=== PATIENT | male | born 1980 | race Hispanic/Latino ===

== ENCOUNTER 2018-11-16 02:44 | Emergency (ER) | payer SELFPAY ==
[2018-11-16] MEDS ORDERED: Sodium Chloride 0.9% 1,000 ML IV STA (03:29)
--- NOTE | 2018-11-16 04:18 | ED PDOC ---
HPI: Abdomen Time Seen by Provider: 11/16/18 03:28 Chief Complaint (Nursing): Abdominal Pain Chief Complaint (Provider): Abdominal Pain History Per: Patient History/Exam Limitations: no limitations Onset/Duration Of Symptoms: Days (x 3) Current Symptoms Are (Timing): Still Present Quality Of Discomfort: "Pain" Associated Symptoms: Nausea, Back Pain Additional Complaint(s): 37 year old male with a history of a right inguinal hernia presents to the ED with bilateral lower abdominal pain that radiates to his back and is associated with nausea for the last few days. Patient reports he has been putting off the hernia repair, but it has been bothering him more than usual lately. He is able to reduce it and there has been no change in color. He googled his symptoms and is suspicious that he could have diverticulitis. Patient began taking Flagyl the last few days after receiving it from a friend. The pain worsens when he eats, therefore patient has also experienced decreased PO intake. He also complains of a few episodes of non bloody diarrhea. Denies fever, blood in stool, vomiting, history of renal colic, and urinary symptoms. PMD: [facility] Past Medical History Reviewed: Historical Data, Nursing Documentation, Vital Signs Vital Signs: Last Vital Signs Temp 97.4 F L 11/16/18 02:54 Pulse 58 L 11/16/18 02:54 Resp 16 11/16/18 02:54 BP 108/67 11/16/18 02:54 Pulse Ox 100 11/16/18 02:54 - Medical History PMH: No Chronic Diseases - Surgical History Surgical History: No Surg Hx - Family History Family History: States: Unknown Family Hx - Home Medications Home Medications: Ambulatory Orders Medication Instructions Recorded Acetaminophen [Acetaminophen 8 650 mg PO Q8 PRN #21 tablet.er 11/16/18 Hour] RX: Ibuprofen [Motrin Tab] 800 mg PO Q8 PRN #21 tab 11/16/18 - Allergies Allergies/Adverse Reactions: Allergies Allergy/AdvReac Type Severity Reaction Status Date / Time Penicillins Allergy RASH Verified 11/16/18 02:58 Review of Systems ROS Statement: Except As Marked, All Systems Reviewed And Found Negative Gastrointestinal: Positive for: Abdominal Pain Musculoskeletal: Positive for: Back Pain Physical Exam - Reviewed Nursing Documentation Reviewed: Yes Vital Signs Reviewed: Yes - Physical Exam Comments: GENERAL APPEARANCE: Patient is awake, alert, oriented x 3; no distress. SKIN: Warm, dry; (-) cyanosis. ENMT: Mucous membranes moist. Airway patent, (-) stridor. NECK: Supple, FROM CHEST AND RESPIRATORY: (-) rales, (-) rhonchi, (-) wheezes; breath sounds equal bilaterally. Respirations even and nonlabored. HEART AND CARDIOVASCULAR: (-) irregularity ABDOMEN AND GI: Soft (-) distention. Bowel sounds active x4; (+) tenderness in bilateral lower quadrants (-) guarding, (-) rebound, (-) palpable masses, (-) CVA tenderness. Reducible right inguinal hernia without discoloration or ja thema; minimal tenderness. EXTREMITIES: (-) deformity, (-) edema, (+) distal pulses. NEURO AND PSYCH: Mental status as above; (-) focal findings. Gait: steady. Speech: clear. (-) facial asymmetry - Laboratory Results Result Diagrams: 11/16/18 04:16 11/16/18 04:16 Urine dip results: Positive for: Ketones (15), Bilirubin (small). Negative for: Leukocyte Esterase, Blood, Nitrate, Glucose, Protein - ECG O2 Sat by Pulse Oximetry: 100 (RA) Pulse Ox Interpretation: Normal Medical Decision Making Medical Decision Makin Impression: acute abdominal pain Initial Plan: --CMP --CBC --lactic acid --Lipase --Urine dip --NS IV --Pepcid 20 mg IV --Toradol 30 mg IV --Zofran Inj 4 mg IV 0415 Udip reviewed and grossly unremarkable. 0440 CBC and CMP grossly unremarkable. Lipase WNL. No elevation of lactic acid. On re-evaluation, patient with persistent discomfort. CT abd/pel with IV contrast ordered. [address] 05:40 CT COMMENTS: Fat-containing right inguinal hernia without incarceration. Diffuse thickening of the right spermatic cord within the superior aspect of the right inguinal canal with associated surrounding free fluid and inflammatory fat stranding. The liver is of uniform attenuation without mass or defect. There is no intra or extrahepatic biliary ductal dilatation. The spleen is normal. The gallbladder is within normal limits. The pancreas is of normal contour and attenuation characteristics. There is no evidence of adrenal mass. Both kidneys demonstrate prompt and equal nephrograms. The kidneys are normal in size, shape and configuration. There is no evidence of renal or ureteral mass. No renal or ureteral calculi are identified. There is no hydroureter or hydronephrosis. No evidence for appendicitis. There is no bowel wall thickening. No evidence for small or large bowel obstruction. There is no evidence of abdominal ascites or lymphadenopathy. There is no evidence of intrinsic or extrinsic bladder mass. There is no pelvic ascites or lymphadenopathy. Images of the lung bases show no evidence of pleural or parenchymal mass. There are no pleural effusions. The bony structures are free of lytic or blastic lesions. IMPRESSION: Fat-containing right inguinal hernia without incarceration. Diffuse thickening of the right spermatic cord within the superior aspect of the right inguinal canal with associated surrounding free fluid and inflammatory fat stranding. No fluid collection. 0550 Case discussed with surgical pathologist, Lior Mora, who states patient can follow up outpatient with surgeon and that he needs to apply icepacks and take NSAIDs as needed. No further intervention required in ED. On re-evaluation, patient reports improvement of symptoms. On exam, patient remains AAOx3, in no acute distress. Vitals stable. Lab/Diagnostic results d/w the patient in great detail. Diagnosis of right inguinal hernia d/w the patient. Based on history, exam and diagnostic results, plan will be for outpatient follow up with surgery. Patient instructed to follow-up with pmd / referral provided / the clinic in 1- 2 days without fail. Advised to take medication as prescribed. Return to the emergency room at any time for any new or worsening symptoms. Patient states he fully agrees with and understands discharge instructions. States that he agrees with the plan and disposition. Verbalized and repeated discharge instructions and plan. I have given the patient opportunity to ask any additional questions. Scribe Attestation: Documented by Rosy Saha acting as a scribe for Jayshree Reyez PA-C Provider Scribe Attestation: All medical record entries made by the Scribe were at my direction and personally dictated by me. I have reviewed the chart and agree that the record accurately reflects my personal performance of the history, physical exam, medical decision making, and the department course for this patient. I have also personally directed, reviewed, and agree with the discharge instructions and disposition. Disposition - Clinical Impression Clinical Impression: Right inguinal hernia - Patient ED Disposition Is Patient to be Admitted: No Counseled Patient/Family Regarding: Studies Performed, Diagnosis, Need For Followup, Rx Given - Disposition Referrals: Indira Rosales MD [Staff Provider] - Disposition: Routine/Home Disposition Time: 06:00 Condition: STABLE Additional Instructions: The emergency medical care you received today was directed at your acute symptoms. If you were prescribed any medication, please fill it and take as directed. It may take several days for your symptoms to resolve. Return to the Emergency Department if your symptoms worsen, do not improve, or if you have any other problems. Please contact your doctor in 2 days for re-evaluation and follow up / or call one of the physicians/clinics you have been referred to that are listed on the Patient Visit Information form that is included in your discharge packet. Bring any paperwork you were given at discharge with you along with any medications you are taking to your follow up visit. Our treatment cannot replace ongoing medical care by a primary care provider (PCP) outside of the emergency department. Prescriptions: Acetaminophen [Acetaminophen 8 Hour] 650 mg PO Q8 PRN #21 tablet.er PRN Reason: Pain, Moderate (4-7) RX: Ibuprofen [Motrin Tab] 800 mg PO Q8 PRN #21 tab PRN Reason: Pain, Moderate (4-7) Instructions: Inguinal and Femoral (Groin) Hernias Forms: [employer] (Puerto [place]ican) Print Language: GREEK - POA Present On Arrival: None Results - Lab Results Lab Results: 11/16/18 11/16/18 11/16/18 04:16 04:16 04:16 WBC 6.5 RBC 4.69 Hgb 13.8 Hct 41.5 MCV 88.5 MCH 29.5 MCHC 33.3 RDW 12.9 Plt Count 263 MPV 8.4 Neut % (Auto) 55.3 Lymph % (Auto) 36.4 [place] % (Auto) 6.7 Eos % (Auto) 1.0 Baso % (Auto) 0.6 Neut # (Auto) 3.6 Lymph # (Auto) 2.4 [place] # (Auto) 0.4 Eos # (Auto) 0.1 Baso # (Auto) 0.0 Sodium 141 Potassium 4.0 Chloride 103 Carbon Dioxide 31 H Anion Gap 11 BUN 14 Creatinine 0.9 Est GFR ( Amer) > 60 Est GFR (Non-Af Amer) > 60 Random Glucose 88 Lactic Acid < 0.5 L Calcium 9.7 Total Bilirubin 1.0 AST 30 ALT 38 Alkaline Phosphatase 67 Total Protein 7.8 Albumin 4.4 Globulin 3.4 Albumin/Globulin Ratio 1.3 Lipase 85
[2018-11-16 04:20] LABS: BASO % 0.6 % (0.0-2.0); EOS # 0.1 K/uL (0.0-0.7); HEMOGLOBIN 13.8 g/dL (12.0-18.0); LYMPH # 2.4 K/uL (1.0-4.3); LYMPH % 36.4 % (20.0-40.0); MEAN CELL VOLUME 88.5 fl (80.0-94.0); MEAN CORPUSCULAR HEMOGLOBIN 29.5 pg (27.0-31.0); MEAN CORPUSCULAR HGB CONC 33.3 g/dL (33.0-37.0); MEAN PLATELET VOLUME 8.4 fl (7.2-11.7); MONO # 0.4 K/uL (0.0-0.8); MONO % 6.7 % (0.0-10.0); NEUT # 3.6 K/uL (1.8-7.0); NEUT % 55.3 % (50.0-75.0); NRBC % 0.1 % (0.0-0.0); RBC 4.69 Mil/uL (4.40-5.90); RED CELL DISTRIBUTION WIDTH 12.9 % (11.5-14.5); WHITE BLOOD COUNT 6.5 K/uL (4.8-10.8)
[2018-11-16 04:28] LABS: ALB/GLOB RATIO 1.3 (1.0-2.1); ALBUMIN 4.4 g/dL (3.5-5.0); ALT/SGPT 38 U/L (21-72); AST/SGOT 30 U/L (17-59); BLOOD UREA NITROGEN 14 mg/dl (9-20); CALCIUM 9.7 mg/dL (8.4-10.2); GFR NON-AFRICAN AMERICAN > 60; LIPASE 85 U/L (23-300)
[2018-11-16] MEDS ORDERED: Iohexol 300 100 ML IJ ONE (05:01)
[2018-11-16] MEDS ORDERED: Sodium Chloride 0.9% 50 ML IV ONE (05:01)
[2018-11-16 07:21] VITALS: BP 122/78; PULSE 86; RESP 18; TEMP 98.2
--- NOTE | 2018-11-16 10:47 | CT ---
Date of service: 11/16/2018 PROCEDURE: CT Abdomen and Pelvis . HISTORY: RLQ and LLQ pain, hx of R inguinal hernia COMPARISON: None. TECHNIQUE: Contiguous axial images of the abdomen and pelvis. Oral contrast was administered. No IV contrast given. Coronal and Sagittal reformats generated. Radiation dose: Total exam DLP = 673.56 mGy-cm. This CT exam was performed using one or more of the following dose reduction techniques: Automated exposure control, adjustment of the mA and/or kV according to patient size, and/or use of iterative reconstruction technique. FINDINGS: LOWER THORAX: Heart size is within range of normal. No significant pericardial effusion. There is a small hiatal hernia with mild wall thickening of the distal esophagus likely due to protrusion gastric mucosa.. Minimal passive/dependent type atelectasis both posterior lower lung [place]. Lung bases are otherwise clear. No evidence of effusion or basilar pneumothorax. LIVER: No evidence unremarkable. No gross lesion or ductal dilatation. GALLBLADDER AND BILE DUCTS: Gallbladder physiologically distended. No evidence of intraluminal gallbladder calculi.. PANCREAS: Unremarkable. No mass. No ductal dilatation. SPLEEN: Spleen is upper limits of normal/borderline enlarged in size measuring nearly 13 cm in AP dimension. ADRENALS: No adrenal lesions seen.. KIDNEYS AND URETERS: Kidneys demonstrate symmetric nephrograms. No evidence of nephrolithiasis or. BLADDER: Urinary bladder is incompletely distended which in part accounts for thick-walled appearance. Muscular hypertrophy may contribute. Rule out cystitis.. REPRODUCTIVE: Unremarkable. APPENDIX: Normal appendix... BOWEL: Evaluation of the bowel is limited due to the lack of oral contrast material. Stomach is incompletely distended with associated wall thickening. The visualized loops of small bowel exhibit normal contour and caliber. No evidence of mechanical small bowel obstruction. There is a moderate amount of stool seen within the ascending, transverse and proximal descending colon consistent with fecal retention/constipation.. PERITONEUM: Unremarkable. No fluid collection. No free air. Small fat containing umbilical hernia. Small bilateral fat containing inguinal hernias right larger than left. Soft tissue is also present within the right inguinal canal which may be secondary to some inflammatory stranding with small amount of fluid, granulation tissue and suspected thickening of the spermatic cord. LYMPH NODES: Unremarkable. No enlarged lymph nodes. VASCULATURE: Unremarkable. No aortic aneurysm. No aortic atherosclerotic calcification or mural plaque present. BONES: . The mild multilevel degenerative spondylosis of the thoracic lumbar spine.. OTHER FINDINGS: None. IMPRESSION: There is a small to medium size right-sided inguinal hernia containing mesenteric fat, with additional soft tissue that may represent some combination of some fluid, inflammatory stranding/granulation the is tissue and possibly thickening of the spermatic cord. Thickening of the spermatic cord, inflammatory changes/granulation tissue and small amount of fluid. Borderline/mild splenomegaly
[2018-11-17 01:52] VITALS: O2SAT 100
== END 2018-11-16 06:10 | disposition home or self-care (01) ==
LOC: H.ER 02:44
DX: K40.90 Unilateral inguinal hernia, without obstruction or gangrene, not specified as recurrent (principal); Z88.0 Allergy status to penicillin
CPT/HCPCS: 74177; 80053; 83605; 83690; 85025; 96361; 96374; 96375; 99283; J1885; J2405; J7030; Q9967